=== PATIENT | male | born 1995 | race Caucasian/White ===

== ENCOUNTER → 2019-05-27 11:36 | Outpatient (BNVA) | payer OTHER, SELFPAY | PROVIDERS: Visit Provider Family Medicine | DX: R05 Cough (principal); J45.21 Mild intermittent asthma with (acute) exacerbation; R50.9 Fever, unspecified; R06.02 Shortness of breath; Z20.828 Contact with and (suspected) exposure to other viral communicable diseases | CPT/HCPCS: 87071; 87400; 87635; 87880 ==

== ENCOUNTER → 2021-08-23 10:32 | Outpatient (BNVA) | payer BC, SELFPAY | PROVIDERS: Visit Provider Family Medicine | DX: D75.0 Familial erythrocytosis (principal); F32.A Depression, unspecified; F41.9 Anxiety disorder, unspecified; Z82.49 Family history of ischemic heart disease and other diseases of the circulatory system | CPT/HCPCS: 80053; 80061; 82728; 83036; 84402; 84403; 85025 ==

== ENCOUNTER → 2022-01-17 15:16 | Outpatient (BNVA) | payer BC, SELFPAY | PROVIDERS: Visit Provider Nurse Practitioner Family | DX: R05.9 Cough, unspecified (principal) | CPT/HCPCS: 87400 ==

== ENCOUNTER 2022-12-31 18:12 | Emergency (ER) | payer OTHER, SELFPAY ==
--- NOTE | 2022-12-31 18:15 | XRR_ITS ---
PROCEDURE INFORMATION: Exam: XR Right Ankle Exam date and time: 12/31/2022 6:28 PM Age: 27 years old Clinical indication: Injury or trauma; Fall; Work related; Sprain or strain; Ankle; Prior surgery; Surgery date: 6+ months; Surgery type: Right foot; Additional info: Fall injury TECHNIQUE: Imaging protocol: Radiologic exam of the right ankle. Views: 3 or more views. COMPARISON: No relevant prior studies available. FINDINGS: Bones/joints: Normal. Soft tissues: Normal. XR/XR ankle RT min 3V* [id number] IMPRESSION: No acute findings.
--- NOTE | 2022-12-31 18:15 | XRR_ITS ---
PROCEDURE INFORMATION: Exam: XR Right Tibia and Fibula Exam date and time: 12/31/2022 6:29 PM Age: 27 years old Clinical indication: Injury or trauma; Fall; Work related; Sprain or strain; Lower leg; Right; Additional info: Fall injury TECHNIQUE: Imaging protocol: Radiologic exam of the right tibia and fibula. Views: 2 views. COMPARISON: CR XR ankle RT min 3V* [id number] 12/31/2022 6:28 PM FINDINGS: Bones/joints: Normal. Soft tissues: Normal. XR/XR tibia fibula RT 2V [id number] IMPRESSION: No acute findings.
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
[2022-12-31 18:17] VITALS: BP 152/89; PULSE 89; RESP 16; TEMP 36.6; O2SAT 98; BMI 44.1
== END 2022-12-31 19:01 | disposition home or self-care (01) ==
PROVIDERS: Emergency Provider Nurse Practitioner Family; PCP Family Medicine
DX: S93.401A Sprain of unspecified ligament of right ankle, initial encounter (principal); Z87.891 Personal history of nicotine dependence; W13.3XXA Fall through floor, initial encounter; Y99.0 Civilian activity done for income or pay
CPT/HCPCS: 73590; 73610; 99283